=== PATIENT | female | born 1955 | race Asian ===

== ENCOUNTER 2022-04-05 09:19 | Emergency (ER) | payer OTHER ==
[~2022-04-05] VITALS: Ht 162.6 cm; Wt 65.5 kg
[2022-04-05 09:23] VITALS: BP 154/87
--- NOTE | 2022-04-05 09:34 | NUR ---
PT W/C ASSISTED TO BED 8.
--- NOTE | 2022-04-05 09:45 | NUR ---
66YO FEMALE PT C/O L ANKLE PAIN XYESTERDAY. REPORTS FALLING ON ANKLE -LOC -HEADINJURY -BLOODTHINNERS. PAIN AT MOST WHEN BEARING WEIGHT. RELIEF AFTER TYLENOL.SWELLING NOTED W/O VISIBLE DEFORMITY. PT HAS FULL ROM W/ SOME DISCOMFORT. DENIES NUMBING OR LOSS OF SENSATION. PT AAOX4, WHEELCHAIR ASSISTED TO ROOM. HX: HTN NKA
--- NOTE | 2022-04-05 09:45 | NUR ---
XRAY AT BEDSIDE
[2022-04-05] MEDS ORDERED: NAPR-1704 PO (10:24)
[2022-04-05] MEDS ORDERED: ACET-8905 PO (10:24)
--- NOTE | 2022-04-05 10:44 | NUR ---
Patient discharged with v/s stable. Written and verbal after care instructions given and explained. Patient alert, oriented and verbalized understanding of instructions. Wheel Chair Assisted with to car. All questions addressed prior to discharge. ID band removed. Patient advised to follow up with PMD. Rx of HYDROCONE AND NAPROXEN given. Opportunity to ask questions provided and answered. [employer] #[id number]
--- NOTE | 2022-04-05 11:00 | NUR ---
The patient's care was reviewed and supervised by Charmaine Cash RN.
== END 2022-04-05 10:44 | disposition home or self-care (01) ==
LOC: MED 09:19
DX: S82.65XA Nondisplaced fracture of lateral malleolus of left fibula, initial encounter for closed fracture (principal); I10 Essential (primary) hypertension; Z79.899 Other long term (current) drug therapy; W18.30XA Fall on same level, unspecified, initial encounter; Y93.89 Activity, other specified; Y92.89 Other specified places as the place of occurrence of the external cause; Y99.8 Other external cause status
CPT/HCPCS: 29515; 73610; 99283; Q0092